=== PATIENT | male | born 1965 | race Caucasian/White ===

== ENCOUNTER 2023-09-19 07:30 | Observation (INO) ==
--- NOTE | 2023-09-12 10:00 | Anesthesiology Consultation ---
Date of Service September 12, 2023 Assessment & Plan (1) Encounter for pre-operative examination: Plan - Per second vp hr assessment on 09/08/2023: No known infectious disease contacts, current infectious disease symptoms in past 10 days or COVID positive test result in the past 30 days. Chart Review Chart Review: Acceptable Risk for Surgery and Patient NOT seen in Pre Admission Testing History Surgery Operation Date: 09/19/23 08:35 Proposed Procedures p Robotic Assisted Laparoscopic Partial Nephrectomy - Right, - Raulito Yuen MD s Flexible Cystoscopy - Raulito Yuen MD Height/Weight Height: 5 ft 10 in Weight: 86.183 kg Allergies Allergy/AdvReac Type Severity Reaction Status Date / Time Corticosteroids Allergy Severe retinopathy Verified 09/08/23 13:49 (Glucocorticoids) Medications Home Medications Medication Instructions Recorded Confirmed Last Taken atorvastatin 20 mg tablet 20 mg PO HS 07/24/23 09/08/23 Unknown famotidine 40 mg tablet 40 mg PO HS 07/24/23 09/08/23 Unknown levothyroxine 25 mcg capsule 100 mcg PO QAM 07/24/23 09/08/23 Unknown melatonin 3 mg tablet 3 mg PO HS PRN Sleep 07/24/23 09/08/23 Unknown pantoprazole 40 mg tablet,delayed 40 mg PO HS 07/24/23 09/08/23 Unknown release paroxetine HCl 20 mg tablet 20 mg PO HS 07/24/23 09/08/23 Unknown propranolol 40 mg tablet 40 mg PO QAM 07/24/23 09/08/23 Unknown valsartan 160 mg tablet 320 mg PO QAM 07/24/23 09/08/23 Unknown alfuzosin 10 mg tablet,extended 10 mg PO PM 09/08/23 09/08/23 Unknown release 24 hr aspirin 81 mg tablet,delayed 81 mg PO HS 09/08/23 09/08/23 Unknown release hydrochlorothiazide 12.5 mg tablet 12.5 mg PO QAM 09/08/23 09/08/23 Unknown Past Medical History Medical History Bladder stone passed on own BPH (benign prostatic hyperplasia) GERD (gastroesophageal reflux disease) Kidney carcinoma reason for up coming surgery Hypothyroidism Anxiety "racing mind" Paxil for this for sleep Tremor propranolol helps Hyperlipidemia Hypertension Past Family History Family History Grandmother (Paternal) Colon cancer Mother Diabetes Past Surgical History Surgical History History of colonoscopy Hx of surgical procedure saphenous vein removed and repaired, then stitched shut s/p ablation left leg Status post laser ablation of incompetent vein H/O removal of cyst face History of removal of skin mole lip History of esophagogastroduodenoscopy (EGD) [place] teeth extracted History of tonsillectomy Social History Smoking Status: Never smoker Do You Dip or Chew Tobacco: No (remote hx) Hx Alcohol Use: Yes Alcohol type: hard liquor alcohol intake frequency: a few times a month Hx Substance Use: No substance use type: does not use Lab Results Anesthesia Preop Results Results Anesthesia Widget: WBC 4.96 K/uL (4.8-10.8) 08/22/23 Hgb 15.3 g/dL (14.0-18.0) 08/22/23 Hct 44.2 % (42.0-52.0) 08/22/23 Plt 208 K/uL (130.0-400.0) 08/22/23 Na 140 mmol/L (136-145) 08/22/23 K 3.8 mmol/L (3.5-5.1) 08/22/23 Cl 108 mmol/L H 08/22/23 CO2 27.9 mmol/L (21-32) 08/22/23 BUN 20.0 mg/dL H 08/22/23 Creat 1.12 mg/dL (0.6-1.4) 08/22/23 Glucose Level 113 mg/dL H 08/22/23 Urine Appearance Clear 07/24/23 Testing Electrocardiogram Date: 08/22/23 Sinus bradycardia, rate 52 bpm Moderate voltage criteria for LVH, consider normal variant Chest X-Ray Date: 08/22/23 No acute findings. Other Testing CT abdomen pelvis 08/07/23 No definite change in a right renal lesion, not well evaluated on this noncontrast study. The previous appearance remains concerning for renal cell carcinoma. Mild soft tissue stranding around the urinary bladder. This is nonspecific in nature but raises the possibility of infectious cystitis. Mild splenomegaly. Small hiatal hernia. Mildly enlarged prostate. Diverticulosis without evidence of diverticulitis.
[~2023-09-19 07:30] MED LIST: LR 15ML/HR IV SCH; ceFAZolin 2000MG 2,000 MG/15 ML SYR IV SCH
[2023-09-19] MEDS ORDERED: MIDAZOLAM HCL 1 MG/ML 2ML VIAL ONE (07:58)
[2023-09-19] MEDS ORDERED: DEXAMETHASONE SOD INJ 4 MG/ML VIAL ONE (07:58)
[2023-09-19] MEDS ORDERED: ROCURONIUM BROMIDE 10 MG/ML 5 ML VIAL IV ONE (07:58)
[2023-09-19] MEDS ORDERED: LIDOCAINE 2% 2 ML VIAL/AMP(20MG/ML) INFIL ONE (07:58)
[2023-09-19] MEDS ORDERED: ONDANSETRON INJ 2 MG/ML 2 ML VIAL ONE (07:58)
[2023-09-19] MEDS ORDERED: PROPOFOL IV EMULSION 10 MG/ML 20 ML VIAL IV ONE (07:58)
[2023-09-19] MEDS ORDERED: fentaNYL citrate PF 100 MCG/2 ML VIAL ONE ×2 (07:58→12:26)
[2023-09-19] MEDS ORDERED: BUPIVACAINE 0.5 % 5 MG/1 ML MPF 30ML VIAL ONE (08:52)
[2023-09-19] MEDS ORDERED: ACETAMINOPHEN 1000 MG/100 ML IV IV ONE (08:54)
[2023-09-19] MEDS ORDERED: FAMOTIDINE/PF 20 MG/2 ML VIAL IV ONE (08:55)
[2023-09-19] MEDS ORDERED: fentaNYL citrate PF 100 MCG/2 ML VIAL IV PRN (09:03)
[2023-09-19] MEDS ORDERED: HYDROmorphone INJ 2 MG/ML SYR/VIAL IV PRN (09:03)
[2023-09-19] MEDS ORDERED: PROMETHAZINE HCL 6.25 MG in SODIUM CHLORIDE 0.9% 50 ML IV PRN (09:03)
[2023-09-19] MEDS ORDERED: ONDANSETRON INJ 2 MG/ML 2 ML VIAL IV PRN ×2 (09:03→14:44)
[2023-09-19] MEDS ORDERED: ATROPINE SULFATE 0.1 MG/ML 10ML SYR IV PRN (09:03)
[2023-09-19] MEDS ORDERED: ePHEDrine sulfate 50 MG/ML AMP IV PRN (09:03)
--- NOTE | 2023-09-19 09:51 | History & Physical Report ---
Date of Service September 19, 2023 Assessment & Plan (1) Right renal mass: Plan endophytic right renal mass seen on CT and MRI with concern for renal cell carcinoma - here today for robotic partial nephrectomy - risks, benefits, and expectations reviewed History of Present Illness Primary Care Provider: Nasir Watson MD Pt with a small right renal mass concerning for renal cell carcinoma he has also had intermittent hematuria, but had a recent cystoscopy in the office enlarged prostate and prominent veins appear to be the cause of the hematuria here today for robotic right partial nephrectomy Allergies Allergy/AdvReac Type Severity Reaction Status Date / Time Corticosteroids Allergy Severe retinopathy Verified 09/19/23 08:20 (Glucocorticoids) Home Medications Medication Instructions Recorded Confirmed Type atorvastatin 20 mg tablet 20 mg PO HS 07/24/23 09/19/23 History famotidine 40 mg tablet 40 mg PO HS 07/24/23 09/19/23 History levothyroxine 25 mcg capsule 100 mcg PO QAM 07/24/23 09/19/23 History melatonin 3 mg tablet 3 mg PO HS PRN Sleep 07/24/23 09/19/23 History pantoprazole 40 mg tablet,delayed 40 mg PO HS 07/24/23 09/19/23 History release paroxetine HCl 20 mg tablet 20 mg PO HS 07/24/23 09/19/23 History propranolol 40 mg tablet 40 mg PO QAM 07/24/23 09/19/23 History valsartan 160 mg tablet 320 mg PO QAM 07/24/23 09/19/23 History alfuzosin 10 mg tablet,extended 10 mg PO PM 09/08/23 09/19/23 History release 24 hr aspirin 81 mg tablet,delayed 81 mg PO HS 09/08/23 09/19/23 History release hydrochlorothiazide 12.5 mg tablet 12.5 mg PO QAM 09/08/23 09/19/23 History Past Med/Surg History Medical History Bladder stone passed on own BPH (benign prostatic hyperplasia) GERD (gastroesophageal reflux disease) Kidney carcinoma reason for up coming surgery Hypothyroidism Anxiety "racing mind" Paxil for this for sleep Tremor propranolol helps Hyperlipidemia Hypertension Surgical History History of colonoscopy Hx of surgical procedure saphenous vein removed and repaired, then stitched shut s/p ablation left leg Status post laser ablation of incompetent vein H/O removal of cyst face History of removal of skin mole lip History of esophagogastroduodenoscopy (EGD) [place] teeth extracted History of tonsillectomy Family History Grandmother (Paternal) Colon cancer Mother Diabetes Social History Smoking Status: Never smoker Second Hand Exposure: No; Do You Dip or Chew Tobacco: No (remote hx); Tobacco Cessation Education Requested by Patient: No Hx Alcohol Use: Yes Alcohol type: hard liquor Hx Substance Use: No Preferred Language: Romansh Communication Ability: Effective 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 Beliefs That Will Affect Care: None Current Living Situation: Significant Other Other Information That Helps Us Care for You: No Feels Safe at Home: Yes Safety Concerns: Feels Safe At This Time Assistive Devices: Glasses Physical Exam Constitutional: well developed and well nourished Neck: neck nontender Respiratory: normal respiratory effort; no respiratory distress and does not use accessory muscles Cardiovascular: Rate/Rhythm: regular rate Vessels: radial pulses present Extremities: no edema Gastrointestinal (Abdomen): Inspection/Auscultation: abdomen normal to inspection Percussion/Palpation: abdomen soft; abdomen nontender and no guarding Musculoskeletal: Head/Neck/Chest: normocephalic and head atraumatic Extremities: extremities normal to inspection Skin: no rashes and no lesions Trauma: no evidence of skin trauma Neurologic: awake; not obtunded Speech / Cognition: normal speech Motor/Sensory: no tremor Psychiatric: Orientation: alert and oriented x 3 Genitourinary: no CVA tenderness Lymphatic: no lymphadenopathy Results & Data Vital Signs (Past 12 Hours) Vital Signs Temp Pulse Resp BP Pulse Ox O2 Del Method 09/19/23 08:10 36.5 C 55 L 18 153/83 H 95 Room Air
[2023-09-19] MEDS ORDERED: MANNITOL 25% 12.5 GM/50 ML VIAL IV ONE ×4 (10:37→11:30)
[2023-09-19] MEDS ORDERED: hydrALAZINE HCL 20 MG/ML VIAL ONE (10:46)
[2023-09-19] MEDS ORDERED: GLYCOPYRROLATE 0.2 MG/ML VIAL ONE (10:56)
[2023-09-19] MEDS ORDERED: TISSEEL FIBRIN SEALANT 10ML TOP ONE (11:06)
[2023-09-19] MEDS ORDERED: FLOSEAL HEMOSTATIC MATRIX 10ML TOP ONE (11:06)
[2023-09-19] MEDS ORDERED: SURGICEL ABSORB HEMOSTAT 2IN X 14IN TOP ONE (11:06)
[2023-09-19] MEDS ORDERED: ePHEDrine sulfate 50 MG/5 ML SYR ONE (11:49)
[2023-09-19] MEDS ORDERED: SUGAMMADEX SODIUM 200 MG/2 ML VIAL IV ONE (12:46)
[2023-09-19] MEDS ORDERED: HYDROmorphone INJ 2 MG/ML SYR/VIAL ONE (13:10)
--- NOTE | 2023-09-19 13:17 | Operative Report ---
PG Post Operative Report Pre & Post Diagnosis Operation Date: 09/19/23 09:35 Pre-Op Diagnosis: Right Renal Mass Post-Op Diagnosis: Right Renal Mass I identified the patient and participated in the time-out.: Yes Procedure Operation Date: 09/19/23 09:35 Actual Procedures p Robotic Assisted Laparoscopic Partial Nephrectomy - Right,(Right) - Raulito Yuen MD Surgeon Raulito Yuen MD Actuarial Analyst Wendy Mary Estimated Blood Loss 25 Findings Consistent with Post-Op Diagnosis Specimens 1. Fat over tumor 2. Right renal mass (capsule somewhat from the underlying specimen in the specimen container Description of Procedure Patient was identified in preoperative holding area appropriate informed conse nts reviewed and completed. He was transported to the operating suite. Adequate general anesthesia was achieved. He was placed in the left side down right side up lateral decubitus position the bed was flexed. He was padded and braced appropriately. Following a sterile prep a Veress needle was passed into the right upper quadrant. Insufflation was uniform to 15 mmHg. We marked tentative port locations staggered across the right hemiabdomen. There were 3 robotic port positions beginning with 1 to 2 fingerbreadths below the costal margin in the mid costal line. The next port was approximately 8 cm inferior and the third was approximately 8 cm inferior and 2 cm lateral. The middle port was placed first using a Visiport and 0 degree lens. Inspection of the abdominal wall revealed no significant adhesions. The Veress needle has no trauma. I then placed an additional 2 ports without difficulty. Of note, he has a small umbilical hernia and I elected to place a 12 mm assistant professor sculpture port in the periumbilical space. The plan will be to extract the specimen through this area and closed the hernia simultaneously. An additional 12 mm port was placed in the upper midline approximately 10 cm above the umbilicus. A 5 mm liver retraction port was placed in the subxiphoid area. The robot was then docked. The edge of the liver was freed from the underlying kidney and elevated and the liver retractor was positioned to help pull the liver out of our [id number]. I then began to mobilize the white line of Toldt and medialized the colon. The colon medialized easily. Although I did not initially see the duodenum or IVC, I did identify the gonadal vein as it was visible through Gerota's fat. Rather than dissecting directly onto it, I turned my attention to an area below the kidney and identified the psoas muscle and the ureter. I created a plane behind the kidney and elevated the kidney placing the hilar vessels on stretch. I was then able to easily dissect up to the location where the vessels of previously been seen. The vein was dissected circumferentially. There were no large branches or aberrant findings from the gonadal vein. The artery was immediately inferior and posterior to the vein. It was dissected circumferentially and fortunately had no branches and I intended path of clamping. After completing the hilar dissection I turned my attention to the kidney itself. He has relatively scant anterior fat. There was a slight bulge in the midportion of the kidney consistent with the location of the tumor on preoperative imaging. Before dissecting through the fat, I passed the ultrasound and performed ultrasound inspection of the kidney. The tumor was at the location of the protuberance. The remainder of the kidney was healthy in appearance and we inspected the entire kidney thoroughly. Once visualizing the tumor I was able to dissect through Gerota's fascia and lift Gerota's fascia off of the underlying tumor and surrounding renal parenchyma. We created the path of dissection that allowed approximately 2 cm to 3 cm of clear renal capsule circumferentially around the tumor. I repeated an ultrasound at that time confirming the location of the planned dissection. I marked the capsule of the kidney with the electrocautery at that time. We then repositioned to renorrhaphy stitches into the abdomen3-0 V-Loc sutures with Hemolock and Weck clips. 12.5 g of mannitol was administered. After a brief timeout to confirm that all participants were prepared for the renal resection, we placed a short curved bulldog clamp across the renal artery. A second short straight bulldog clamp was placed immediately adjacent to the first clamp. A long straight bulldog clamp was then placed across the vein. The kidney blanched immediately. Time was marked. Using my previously marked incision I was able to incise further through the capsule and superficial renal parenchyma. After reaching an appropriate depth I began to turn my dissection underneath the mass. Caution was used to avoid invasion into the mass and we could easily inspect and visualize normal-appearing renal parenchyma as well as some sinus fat at the deepest aspect of the dissection. Hemostasis was excellent. The entire specimen was removed and passed out of our immediate field of dissection. We then switched instruments to allow for renal reconstruction. Using a sliding clip technique and the previously placed stitches we were able to close the defect in approximately 6 passes. Hemostasis was quite good at that time and we unclamped the kidney. Time was marked again and there was a 20 minutes of warm ischemia time. There was 1 small capsular vessel oozing at that time and a stitch was used to control this further. Bleeding was minimal even prior to the stitch. Floseal, small piece of Surgicel and Tisseel were placed over the defect. Gerota's fascia was reapproximated utilizing a 3-0 V-Loc stitch. The specimen and a portion of the fat overlying the tumor were both collected in an Endo Catch bag. UMM drain was guided into the left hemiabdomen through our lowest robotic port. The specimen was extracted through expansion of the periumbilical incision. After removing the other ports, I began to inspect the umbilical area. He has a small hernia which contained a large flat fat globules. This was reduced and removed. The defect was opened and reapproximation of the fascia utilizing a 0 PDS in [id number] fashion. 2 stitches were placed next which other which completely closed the defect. The 12 mm port in the upper midline was closed with a 0 Vicryl. All other ports were closed with 4-0 Monocryl after infiltration with half percent Marcaine. The umbilical incision was also closed with 4-0 Monocryl followed by Dermabond. The drain was sutured in place with a 3-0 nylon. Da Silva catheter will be left in place. He was reversed of anesthesia and taken to the recovery room in stable condition. There were no complicat ions. Wendy Mary assisted from incision to closure. I attest to the content of the Intraoperative Record and any orders documented therein. Any exceptions are noted below.
[2023-09-19] MEDS ORDERED: SODIUM CHLORIDE 0.9% 50 ML BAG ONE (13:24)
[2023-09-19] MEDS ORDERED: PROMETHAZINE HCL INJ 25 MG/ML 1 ML VIAL ONE (13:24)
--- NOTE | 2023-09-19 13:49 | Anesthesiology Progress Note ---
Date of Service September 19, 2023 Anesthesia Post Procedure Vital Signs Vital Signs: Temp Pulse Resp BP Pulse Ox O2 Del Method O2 Flow Rate 09/19/23 13:40 97.9 F 67 14 131/67 92 Nasal Cannula 3 09/19/23 13:30 67 12 148/64 H 92 Nasal Cannula 3 09/19/23 13:20 72 17 141/66 H 96 Oxymask 4 09/19/23 13:14 97.2 F L 83 16 152/64 H 97 Oxymask 6 09/19/23 08:10 97.7 F 55 L 18 153/83 H 95 Room Air Pain Intensity Right Abdomen: Pain Intensity: 5 Transfer of Care Handoff Completed per policy Notes Mental Status: alert / awake / arousable and participated in evaluation Patient Amnestic to Procedure: Yes Nausea / Vomiting: adequately controlled Pain: adequately controlled Airway Patency, RR, SpO2: stable & adequate BP & HR: stable & adequate Hydration State: stable & adequate Anesthetic Complications: no major complications apparent and Pt Satisfied with anesthetic care
[2023-09-19 14:28] LABS: Basophils # (auto) 0.01 K/uL (0.00-0.20); Basophils % (auto) 0.1 %; Eosinophils # (auto) 0.05 K/uL (0.00-0.50); Eosinophils % (auto) 0.7 %; Hematocrit (blood only) 38.8 % (42.0-52.0); Hemoglobin 13.8 g/dl (14.0-18.0); Immature Granulocytes # (auto) 0.03 K/uL (0.01-0.20); Immature Granulocytes % (auto) 0.4 %; Lymphocytes # (auto) 0.72 K/uL (1.20-3.40); Lymphocytes % (auto) 9.4 %; Mean Corpuscular Hemoglobin 29.9 pg (25.0-34.0); Mean Corpuscular Hgb Conc 35.6 g/dL (32.0-36.0); Mean Corpuscular Volume 84.2 fL (80.0-100.0); Mean Platelet Volume 10.1 fL (9.4-12.4); Monocytes # (auto) 0.57 K/uL (0.11-0.59); Monocytes % (auto) 7.5 %; Neutrophils # (auto) 6.26 K/uL (1.40-6.50); Neutrophils % (auto) 81.9 %; Platelet Count 154 K/uL (130-400); RDW Coefficient of Variation 12.9 % (11.5-14.5); RDW Standard Deviation 39.4 fL (36.4-46.3); Red Blood Count 4.61 M/uL (4.70-6.10); White Blood Count 7.64 K/ul (4.8-10.8)
[2023-09-19 14:40] LABS: BUN Creatinine Ratio 15.7 (10-20); Calcium 8.1 mg/dl (8.6-10.3); Creatinine Clr Calc Pharmacy 77.9 ml/min; Est GFR (African American) 87.8 ml/min; Est GFR (Non-African American) 75.8 ml/min; Potassium 3.9 mmol/L (3.5-5.1)
[2023-09-19] MEDS ORDERED: MoRPHine SULFATE 4 MG/ML 1 ML CARP\\VIAL IV PRN (14:44)
[2023-09-19] MEDS ORDERED: ACETAMINOPHEN 325 MG TAB PO PRN (14:44)
[2023-09-19] MEDS ORDERED: oxyCODONE HCL IR 5 MG TAB (IMMEDIATE RELEASE) PO PRN (14:44)
[2023-09-19] MEDS ORDERED: MELATONIN 3 MG TAB PO PRN (14:44)
[2023-09-19] MEDS ORDERED: MoRPHine SULFATE 2 MG/ML CARP IV PRN (14:44)
[2023-09-19] MEDS: LACTATED RINGER'S 1,000 ML IV SCH ×2 (15:33→22:37)
[2023-09-19] MEDS: oxyCODONE HCL IR 5 MG TAB (IMMEDIATE RELEASE) PO PRN ×2 (17:13→21:07)
[2023-09-19] MEDS: ceFAZolin 2000MG 2,000 MG/15 ML SYR IV SCH (18:03)
[2023-09-19] MEDS ORDERED: PANTOprazole 40 MG TAB PO SCH (21:00)
[2023-09-19] MEDS ORDERED: ATORVASTATIN 20 MG TAB PO SCH (21:00)
[2023-09-19] MEDS ORDERED: TAMSULOSIN HCL 0.4 MG CAP PO SCH (21:00)
[2023-09-19] MEDS ORDERED: FAMOTIDINE 40 MG TABLET PO SCH (21:00)
[2023-09-19] MEDS ORDERED: PARoxetine HCL 20 MG TAB PO SCH (21:00)
[2023-09-19] MEDS: DOCUSATE SODIUM 100 MG CAP PO SCH (21:07)
[2023-09-20] MEDS: ceFAZolin 2000MG 2,000 MG/15 ML SYR IV SCH (01:26)
[2023-09-20] MEDS: oxyCODONE HCL IR 5 MG TAB (IMMEDIATE RELEASE) PO PRN ×3 (01:37→13:17)
[2023-09-20 06:21] LABS: Basophils # (auto) 0.02 K/uL (0.00-0.20); Basophils % (auto) 0.3 %; Eosinophils # (auto) 0.03 K/uL (0.00-0.50); Eosinophils % (auto) 0.4 %; Hemoglobin 12.3 g/dl (14.0-18.0); Immature Granulocytes # (auto) 0.02 K/uL (0.01-0.20); Immature Granulocytes % (auto) 0.3 %; Lymphocytes # (auto) 0.89 K/uL (1.20-3.40); Lymphocytes % (auto) 12.3 %; Mean Corpuscular Hemoglobin 29.9 pg (25.0-34.0); Mean Corpuscular Hgb Conc 35.1 g/dL (32.0-36.0); Mean Corpuscular Volume 85.2 fL (80.0-100.0); Mean Platelet Volume 10.6 fL (9.4-12.4); Monocytes # (auto) 1.01 K/uL (0.11-0.59); Monocytes % (auto) 13.9 %; Neutrophils # (auto) 5.29 K/uL (1.40-6.50); Neutrophils % (auto) 72.8 %; Platelet Count 152 K/uL (130-400); RDW Standard Deviation 40.3 fL (36.4-46.3); Red Blood Count 4.11 M/uL (4.70-6.10); White Blood Count 7.26 K/ul (4.8-10.8)
[2023-09-20] MEDS ORDERED: LEVOTHYROXINE SODIUM 100 MCG TABLET PO SCH (06:30)
[2023-09-20 06:32] LABS: BUN Creatinine Ratio 11.8 (10-20); Creatinine Clr Calc Pharmacy 70.7 ml/min; Est GFR (African American) 78.1 ml/min; Est GFR (Non-African American) 67.4 ml/min; Potassium 3.7 mmol/L (3.5-5.1)
[2023-09-20] MEDS: DOCUSATE SODIUM 100 MG CAP PO SCH (08:19)
[2023-09-20] MEDS ORDERED: hydroCHLOROthiazide 25 MG TAB PO SCH (09:00)
[2023-09-20] MEDS ORDERED: VALSARTAN 80 MG TAB PO SCH (09:00)
[2023-09-20] MEDS ORDERED: PROPRANOLOL HCL 20 MG TAB PO SCH (09:00)
--- NOTE | 2023-09-20 09:15 | Urology Progress Note ---
Date of Service September 20, 2023 Assessment & Plan (1) Right renal mass: Plan 57yo/M admitted s/p robotic partial nephrectomy for a right renal mass with concern for renal cell carcinoma - POD #1 s/p Right Robotic Assisted Laparoscopic Partial Nephrectomy with Dr. Yuen. - Doing well, progressing as expected. - Afebrile and hemodynamically stable. - Labs reviewed and appropriate - WBC 7.26, hemoglobin 12.3, creatinine 1.19. - Da Silva draining clear yellow urine with good output. - UMM drain with minimal serosanguineous drainage. Plan- - Remove Da Silva catheter and monitor for void. - Advance diet as tolerated. - Discontinue IV fluids. - Maintain UMM drain for now. - Encourage ambulation. - Continue supportive care and pain management as needed. - Will reassess this afternoon with possible discharge home later today or tomorrow pending patient progression. - Pt reassessed this afternoon. - Voiding spontaneously following catheter removal. - Remains afebrile and hemodynamically stable. - Ambulating without issue. - Tolerating diet. - UMM drain with minimal serosanguineous drainage. - Pt requesting to be discharged home today. - Order placed to remove UMM drain. - Discharge instructions reviewed, all questions were answered. - Pt stable for discharge home today. - Will arrange appropriate postoperative follow-up. Admission and Anticipated Discharge Date Admission Date: September 19, 2023 Subjective Patient examined at bedside this morning with Dr. Yuen. Awake, resting in bed on arrival. No acute distress. No fevers. VSS. Da Silva draining clear yellow urine. Output overnight 650 mL. UMM with minimal serosanguineous drainage. Output overnight 80 mL. Incisions appropriate. Reports minimal pain. Has ambulated without issue. Tolerating clear liquid diet. No nausea or vomiting. Review of Systems Constitutional: as per Subjective / HPI Gastrointestinal: as per Subjective / HPI Genitourinary: + as per Subjective / HPI Physical Exam Constitutional: no acute distress Respiratory: no respiratory distress and no labored breathing Gastrointestinal (Abdomen): Percussion/Palpation: abdomen soft; abdomen nontender Incisions appropriate, Dermabond and Steri-Strips intact. UMM drain with minimal serosanguineous drainage. Musculoskeletal: Head/Neck/Chest: normocephalic Skin: No visible rashes or lesions to exposed skin areas Neurologic: moves all extremities and awake Psychiatric: A+Ox3, euthymic affect Genitourinary: Da Silva draining clear yellow urine Results & Data Vital Signs (Past 12 Hours) Vital Signs Temp Pulse Pulse Resp BP Pulse Ox O2 Del Method 09/20/23 08:04 36.9 C 77 16 163/91 H 95 Room Air 09/20/23 02:00 37.1 C 72 18 143/72 H 94 Room Air PG Care Time/CCT Total # of Minutes Spent Total Time Spent with Patient: Total time spent is greater than 50% in coordination of care (as documented) at patient's floor/unit and/or counseling patient: Coding Level of Care Code None Diagnoses Right renal mass N28.89
--- NOTE | 2023-09-20 15:40 | Discharge Summary ---
Date of Service September 20, 2023 Admission HPI Per Admitting Provider Pt with a small right renal mass concerning for renal cell carcinoma he has also had intermittent hematuria, but had a recent cystoscopy in the office enlarged prostate and prominent veins appear to be the cause of the hematuria here today for robotic right partial nephrectomy Admission Exam Per Admitting Provider Constitutional: well developed and well nourished Neck: neck nontender Respiratory: normal respiratory effort; no respiratory distress and does not use accessory muscles Cardiovascular: Rate/Rhythm: regular rate Vessels: radial pulses present Extremities: no edema Gastrointestinal (Abdomen): Inspection/Auscultation: abdomen normal to inspection Percussion/Palpation: abdomen soft; abdomen nontender and no guarding Musculoskeletal: Head/Neck/Chest: normocephalic and head atraumatic Extremities: extremities normal to inspection Skin: no rashes and no lesions Trauma: no evidence of skin trauma Neurologic: awake; not obtunded Speech / Cognition: normal speech Motor/Sensory: no tremor Psychiatric: Orientation: alert and oriented x 3 Genitourinary: no CVA tenderness Lymphatic: no lymphadenopathy Principal Diagnosis Right Renal Mass Discharge Exam Constitutional no acute distress Respiratory no respiratory distress and no labored breathing Gastrointestinal (Abdomen) Percussion/Palpation: abdomen soft; abdomen nontender Incisions appropriate, Dermabond and Steri-Strips intact Musculoskeletal Head/Neck/Chest: normocephalic Neurologic moves all extremities and awake Psychiatric A+Ox3, euthymic affect Discharge Data Allergies Allergy/AdvReac Type Severity Reaction Status Date / Time Corticosteroids Allergy Severe retinopathy Verified 09/19/23 08:20 (Glucocorticoids) Procedures Performed Operation Date: 09/19/23 09:35 Actual Procedures p Robotic Assisted Laparoscopic Partial Nephrectomy - Right,(Right) - Raulito Yuen MD Hospital Course (1) Right renal mass: Plan 57yo/M admitted s/p robotic partial nephrectomy for a right renal mass with concern for renal cell carcinoma. Patient tolerated procedure well. No acute issues postoperatively. Remained afebrile and hemodynamically stable. Labs reviewed and were appropriate - WBC 7.26, hemoglobin 12.3, creatinine 1.19. Da Silva catheter with good output and clear yellow urine. UMM drain with minimal serosanguineous drainage. Tolerated diet. Ambulated without issue. Pain well- controlled with medication. Patient passed a voiding trial on postop day #1. UMM drain was removed. Patient was subsequently discharged home on postop day #1. He was in stable condition at time of discharge. Discharge instructions were reviewed, all questions were answered. Total Time Total Time Spent Total Time Spent (In Minutes): 15 Discharge Plan Discharge Items Patient Disposition: Home - Self-Care Reason For Visit: Right Renal Mass Discharge Diagnosis: Right Renal Mass Activity: Per Instructions section Lifting: No more than 25 pounds Bathing Comment: OK to shower. No tub baths or soaks. Sexual Activity: Wait until after follow-up appointment Exercise/Sports: Wait until after follow-up appointment Driving/Machine Use: Do not drive if taking prescription pain medication. Non-emergency contact: Surgeon and Urologist Call non-emergency contact if: you have any medication questions, your pain is not controlled, your pain is worsening, you have a fever, your temperature is above 101, your wound has increased redness, your wound has increased drainage and your wound pain has increased Follow-up/Referrals: Raulito Yuen MD [Physician] - ([facility] STATES THE OFFICE WILL CALL THE PATIENT WITH A HOSPITAL FOLLOW UP) Nasir Watson MD [Primary Care Provider] - Diet: Regular Addtl Attending Provider Instructions: Please take all medications as prescribed and keep all follow-ups as scheduled. Please call our office at [phone] with any questions, concerns or need to reschedule appointments for any reason. We are happy to assist you. The urology office will contact you to arrange a follow-up visit. You may resume aspirin in the next 2-3 days if urine remains clear to light pink. Please call the urology office with any questions or concerns. Recovering at home: We recommend having someone with you for the first few days after surgery to help care for you. It is okay to shower tomorrow. Please avoid swimming, bathing or using hot tub until incisions are well healed. Avoid driving until you are not requiring pain medication any further. Walk at least a few times a day. Increase your distance, as you feel able. Stairs in your home are okay. Please avoid strenuous or sexual activity until your follow-up. We recommend using stool softener (i.e. Colace) to prevent constipation and straining, especially the first two weeks post operatively. Call [facility] at [phone] if you experience: Chest pain or trouble breathing (call 911 or go to the hospital). Fever of 101F or higher Symptoms of infection at incision site, including redness or swelling, warmth, or bad-smelling drainage If you are unable to urinate or urine contains heavy blood clots Pain that is not controlled with medicines Pending Studies at Discharge: Yes (pathology) Stand-Alone Forms: My [facility], Pain - Opioid Pain Management Medications and DC Order Prescriptions: New oxycodone-acetaminophen [Percocet] 5-325 mg tablet 1 tab PO Q8H PRN (Reason: pain) Qty: 10 0RF Continued atorvastatin 20 mg tablet 20 mg PO HS levothyroxine 25 mcg capsule 100 mcg PO QAM famotidine 40 mg tablet 40 mg PO HS propranolol 40 mg tablet 40 mg PO QAM paroxetine HCl 20 mg tablet 20 mg PO HS valsartan 160 mg tablet 320 mg PO QAM pantoprazole 40 mg tablet,delayed release (DR/EC) 40 mg PO HS melatonin 3 mg tablet 3 mg PO HS PRN (Reason: Sleep) aspirin 81 mg Tablet,Delayed Release (Dr/Ec) 81 mg PO HS hydrochlorothiazide 12.5 mg Tablet 12.5 mg PO QAM alfuzosin 10 mg tablet extended release 24 hr 10 mg PO PM Rx Instructions: administer after the same meal each day Discharge Orders: Discharge Order (Routine); Ordered 09/20/23 Ordered By: Wendy Ford/Other Patient Handouts: Nephrectomy Dc Admission Data Admit Date/Time: 09/19/23 13:15 Attending Provider: Raulito Yuen Admit Provider: Raulito Yuen Primary Care Provider: Nasir Watson Other Interventions: Discharge Summary Assessment (RN) Last Done: 09/20/23 14:36 Coding Level of Care Code 63011 IN/OBS DISCH 30 MIN/LESS Diagnoses Right renal mass N28.89
== END 2023-09-20 15:26 | disposition home or self-care (01) ==
LOC: ASU 07:30 → 3E 13:15 → INTOOBSV 13:15